=== PATIENT | male | born 1970 | race Caucasian/White ===

== ENCOUNTER → 2019-12-30 04:41 | Outpatient (BNVA) | payer MEDICARE, SELFPAY | PROVIDERS: Family Provider Family Medicine; PCP Family Medicine; Visit Provider Nurse Practitioner Family | DX: Z20.828 Contact with and (suspected) exposure to other viral communicable diseases (principal); R43.0 Anosmia; J06.9 Acute upper respiratory infection, unspecified | CPT/HCPCS: 87426 ==